=== PATIENT | male | born 1970 | race African-American/Black ===

== ENCOUNTER 2017-06-23 16:15 | Emergency (ER) | payer MEDICAID, OTHER ==
[~2017-06-23] VITALS: Ht 172.7 cm; Wt 100.0 kg
[2017-06-23] MEDS ORDERED: ACETAMINOPHEN 325MG TABLET PO ONE (17:30)
[2017-06-23 17:55] VITALS: BP 159/92
== END 2017-06-23 18:12 | disposition home or self-care (01) ==
LOC: ER 16:57
DX: H72.92 Unspecified perforation of tympanic membrane, left ear (principal); I10 Essential (primary) hypertension
CPT/HCPCS: 99283